=== PATIENT | male | born 1965 | race Two or more races ===

== ENCOUNTER 2018-01-07 21:53 | Emergency (ER) | payer OTHER ==
[~2018-01-07] VITALS: Ht 170.2 cm; Wt 108.2 kg
[2018-01-07 21:58] VITALS: BP 136/85
[2018-01-07] MEDS ORDERED: VALACYCLOVIR 500MG TABLET PO STA (22:24)
== END 2018-01-07 23:24 | disposition home or self-care (01) ==
LOC: ED 23:20
DX: B02.9 Zoster without complications (principal); I10 Essential (primary) hypertension; E11.9 Type 2 diabetes mellitus without complications
CPT/HCPCS: 99285; J7512